=== PATIENT | male | born 1985 ===

== ENCOUNTER 2018-12-22 03:17 | Inpatient (IN) | payer OTHER ==
[2018-12-22] MEDS ORDERED: Sodium Chloride 0.9% 1,000 ML IV STA (03:57)
--- NOTE | 2018-12-22 04:00 | ED PDOC ---
HPI: Abdomen Chief Complaint (Nursing): Male Genitourinary Chief Complaint (Provider): abdominal pain History Per: Patient History/Exam Limitations: no limitations Onset/Duration Of Symptoms: Days (3), Waxing/Waning Current Symptoms Are (Timing): Better Location Of Pain/Discomfort: Epigastric Additional Complaint(s): 33 y/o male presents for evaluation of intermittent abdominal pain x 3 days. Patient reports similar pain on-and-off x years, sometimes with vomiting but none at present. Patient also states he thinks he may have a urine infection and googled his symptoms so took [id number] medications. Denies fever, nausea/vomiting, chest pain, shortness of breath, palpitations, hematuria, changes in bowel movements. PAtient admits to drinking alcohol tonight Past Medical History Reviewed: Historical Data, Nursing Documentation, Vital Signs Vital Signs: Last Vital Signs Temp 98.4 F 12/22/18 03:33 Pulse 114 H 12/22/18 03:33 Resp 18 12/22/18 03:33 BP 125/69 12/22/18 03:33 Pulse Ox 98 12/22/18 03:33 - Medical History PMH: No Chronic Diseases - Surgical History Surgical History: No Surg Hx - Family History Family History: States: Unknown Family Hx - Social History Current smoker - smoking cessation education provided: No Alcohol: Occasional (3x/week) Drugs: Denies - Immunization History Hx Tetanus Toxoid Vaccination: Yes Hx Influenza Vaccination: No Hx Pneumococcal Vaccination: No - Home Medications Home Medications: Ambulatory Orders Medication Instructions Recorded No Known Home Med 11/23/18 - Allergies Allergies/Adverse Reactions: Allergies Allergy/AdvReac Type Severity Reaction Status Date / Time No Known Allergies Allergy Unverified 11/23/18 00:21 Review of Systems ROS Statement: Except As Marked, All Systems Reviewed And Found Negative Gastrointestinal: Positive for: Abdominal Pain Genitourinary Male: Positive for: Dysuria Physical Exam - Reviewed Nursing Documentation Reviewed: Yes Vital Signs Reviewed: Yes - Physical Exam Appears: Positive for: Well, Non-toxic, No Acute Distress Head Exam: Positive for: ATRAUMATIC, NORMAL INSPECTION, NORMOCEPHALIC Skin: Positive for: Normal Color Eye Exam: Positive for: Normal appearance ENT: Positive for: Normal ENT Inspection Cardiovascular/Chest: Positive for: Regular Rate, Rhythm Respiratory: Positive for: Normal Breath Sounds Gastrointestinal/Abdominal: Positive for: Normal Exam Back: Positive for: Normal Inspection Extremity: Positive for: Normal ROM Neurologic/Psych: Positive for: Alert, Oriented (x3) - Laboratory Results Result Diagrams: 12/22/18 04:35 12/22/18 04:35 - ECG ECG: Positive for: Viewed By Me (reviewed by ED attending) ECG Rhythm: Positive for: Sinus Rhythm O2 Sat by Pulse Oximetry: 98 - Progress ED Course And Treament: -cbc -cmp -lipase -alcohol -urinalysis -gc/chlamydia -urine c&s -IV NS bolus Lipase 874, elevated from 204 previous ED visit one month ago with similar complaints Dr. Ayala discussed case with Dr. Ji, medical service on-call, for admission for IV hydration Disposition - Clinical Impression Clinical Impression: Alcohol abuse, Pancreatitis - Patient ED Disposition Is Patient to be Admitted: Yes - Disposition Disposition Time: 05:26 Condition: FAIR
[2018-12-22 04:39] LABS: BASO # 0.1 K/uL (0.0-0.2); BASO % 2.1 % (0.0-2.0); EOS # 0.1 K/uL (0.0-0.7); EOS % 3.5 % (0.0-4.0); HEMOGLOBIN 12.6 g/dL (12.0-18.0); LYMPH # 1.3 K/uL (1.0-4.3); LYMPH % 44.5 % (20.0-40.0); MEAN CELL VOLUME 96.5 fl (80.0-94.0); MEAN CORPUSCULAR HEMOGLOBIN 32.2 pg (27.0-31.0); MEAN CORPUSCULAR HGB CONC 33.4 g/dL (33.0-37.0); MEAN PLATELET VOLUME 7.2 fl (7.2-11.7); MONO # 0.3 K/uL (0.0-0.8); MONO % 8.7 % (0.0-10.0); NEUT # 1.2 K/uL (1.8-7.0); NEUT % 41.2 % (50.0-75.0); NRBC % 0.1 % (0.0-0.0); RBC 3.9 Mil/uL (4.40-5.90); WHITE BLOOD COUNT 2.9 K/uL (4.8-10.8)
[2018-12-22 04:44] LABS: SQUAMOUS EPITHIAL < 1 /hpf (0-5); URINE BACTERIA RARE (<OCC); URINE BILIRUBIN NEGATIVE (NEGATIVE); URINE BLOOD NEGATIVE (NEGATIVE); URINE CLARITY SLIGHTY-CLOUDY (Clear); URINE COLOR YELLOW (YELLOW); URINE GLUCOSE (UA) NEG (NEGATIVE); URINE LEUKOCYTE ESTERASE NEG Leu/uL (Negative); URINE PROTEIN 30 mg/dL (NEGATIVE); URINE UROBILINOGEN 0.2-1.0 mg/dL (0.2-1.0)
[2018-12-22 05:19] LABS: ALB/GLOB RATIO 1.3 (1.0-2.1); ALBUMIN 4.1 g/dL (3.5-5.0); ALT/SGPT 167 U/L (21-72); AST/SGOT 660 U/L (17-59); BLOOD UREA NITROGEN 7 mg/dl (9-20); CALCIUM 8.5 mg/dL (8.4-10.2); GFR NON-AFRICAN AMERICAN > 60; LIPASE 874 U/L (23-300)
[2018-12-22] MEDS ORDERED: Lactated Ringer's 1,000 ML IV STA ×2 (05:22)
[2018-12-22] MEDS ORDERED: Multivitamin (MVI) 10 ML, Folic Acid 1 MG, Thiamine 100 MG in Dextrose 5%/0.45% NS 1,00... IV ONE (05:28)
[2018-12-22] MEDS ORDERED: Morphine 4 MG/ML VIAL IVP ONE (06:33)
[2018-12-22] MEDS ORDERED: Morphine 4 MG/ML VIAL ONE (06:37)
[2018-12-22] MEDS ORDERED: Morphine 4 MG/ML VIAL IVP PRN ×2 (08:10)
[2018-12-22] MEDS ORDERED: Lactated Ringer's 1,000 ML IV SCH (08:15)
--- NOTE | 2018-12-22 08:22 | CP.PCM.HP ---
<Dot Naqvi - Last Filed: 12/22/18 08:15> History of Present Illness - History of Present Illness History of Present Illness: HPI: 33 YO male with PMHx of gastritis and sig ETOH presents to [facility] ED for abdominal pain and lower ext numbness. Pt states that he has had abdominal pain for the past week, but it worsened over the past two days, at the worst last night which prompted pt to come in to the ER. Pt states that pain radiated to the back, not associated with n/v or chills. Normal BMs. Peripheral numbness has been persistent for "years", has been the same but "more bothersome recently. PMHx: gastritis, ETOH abuse SurgHx: denies FHx: denies SHx: 5 pack whiskey 3-4x a week, denies smoking and illicit drug use Allergies: NKDA Present on Admission - Present on Admission Any Indicators Present on Admission: No Review of Systems - Constitutional Constitutional: absent: Chills, Fever - Cardiovascular Cardiovascular: absent: Chest Pain, Dyspnea, Palpitations - Respiratory Respiratory: absent: Cough, Dyspnea - Gastrointestinal Gastrointestinal: Abdominal Pain. absent: Diarrhea, Nausea, Vomiting - Neurological Neurological: Numbness Past Patient History - Past Social History Smoking Status: Never Smoked Alcohol: Occasional (3x/week) Drugs: Denies - PSYCHIATRIC Hx Substance Use: No - SURGICAL HISTORY Hx Surgeries: No - ANESTHESIA Hx Anesthesia: No Meds Allergies/Adverse Reactions: Allergies Allergy/AdvReac Type Severity Reaction Status Date / Time No Known Allergies Allergy Unverified 12/22/18 08:06 Physical Exam - Constitutional Appears: No Acute Distress - Head Exam Head Exam: NORMAL INSPECTION - Eye Exam Eye Exam: Normal appearance - ENT Exam ENT Exam: Mucous Membranes Moist - Respiratory Exam Respiratory Exam: Clear to Auscultation Bilateral, NORMAL BREATHING PATTERN. absent: Wheezes - Cardiovascular Exam Cardiovascular Exam: REGULAR RHYTHM, +S1, +S2 - GI/Abdominal Exam GI & Abdominal Exam: Normal Bowel Sounds, Soft, Tenderness (epigastric area ). absent: Distended, Guarding, Rebound, Rigid - Extremities Exam Extremities exam: Positive for: normal inspection. Negative for: calf tenderness, pedal edema - Neurological Exam Neurological exam: Alert, Oriented x3 - Psychiatric Exam Psychiatric exam: Normal Mood Results - Vital Signs Recent Vital Signs: Last Vital Signs Temp 98.3 F 12/22/18 06:30 Pulse 92 H 12/22/18 06:30 Resp 17 12/22/18 06:30 BP 129/88 12/22/18 06:30 Pulse Ox 98 12/22/18 06:30 - Labs Result Diagrams: 12/22/18 04:35 12/22/18 04:35 Labs: Laboratory Results - last 24 hr 12/22/18 12/22/18 12/22/18 04:35 04:35 04:35 WBC 2.9 L RBC 3.90 L Hgb 12.6 Hct 37.6 MCV 96.5 H MCH 32.2 H MCHC 33.4 RDW 16.0 H Plt Count 155 MPV 7.2 Neut % (Auto) 41.2 L Lymph % (Auto) 44.5 H [place] % (Auto) 8.7 Eos % (Auto) 3.5 Baso % (Auto) 2.1 H Neut # (Auto) 1.2 L Lymph # (Auto) 1.3 [place] # (Auto) 0.3 Eos # (Auto) 0.1 Baso # (Auto) 0.1 Sodium 144 Potassium 3.7 Chloride 108 H Carbon Dioxide 24 Anion Gap 16 BUN 7 L Creatinine 0.6 L Est GFR ( Amer) > 60 Est GFR (Non-Af Amer) > 60 Random Glucose 96 Calcium 8.5 Total Bilirubin 0.7 AST 660 H D ALT 167 H Alkaline Phosphatase 126 Total Protein 7.3 Albumin 4.1 Globulin 3.2 Albumin/Globulin Ratio 1.3 Lipase 874 H Urine Color Yellow Urine Clarity Slighty-cloudy Urine pH 7.0 Ur Specific [place] Ari 1.011 Urine Protein 30 Urine Glucose (UA) Neg Urine Ketones Negative Urine Blood Negative Urine Nitrate Negative Urine Bilirubin Negative Urine Urobilinogen 0.2-1.0 Ur Leukocyte Esterase Neg Urine RBC (Auto) 1 Urine Microscopic WBC 1 Ur Squamous Epith Cells < 1 Urine Bacteria Rare Alcohol, Quantitative 405 H* Assessment & Plan (1) Leukopenia Status: Chronic (2) Alcohol abuse Status: Chronic (3) Pancreatitis Status: Acute - Assessment and Plan (Free Text) Assessment: Assessment/Plan: 33 YO male with PMHx of gastritis and sig ETOH is admitted for alcoholic pancreatitis. Alcoholic pancreatitis -acute, elevated lipase -c/w IVFs LR, NPO -start protonix IV -pain management -GI consulted; follow up recs ETOH abuse -chronic -banana bag, start folate, thiamine -f/w ammonia, B12 and folic acid levels -[facility] 4 today -[facility] protocol -Ativan prn withdrawal -elevated ETOH: 1x lactulose SD -elevated liver enzymes Leukopenia -likely 2/2 to chronic ETOH abuse -c/t monitor Peripheral neuropahthy -likely 2/2 to ETOH abuse -replace thiamine and B12 -follow up b12 and folate levels -consider lyrica DVT: lovenox SC Plan as ordered <Darrell Ji - Last Filed: 12/22/18 09:23> Results - Vital Signs Recent Vital Signs: Last Vital Signs Temp 98.3 F 12/22/18 06:30 Pulse 92 H 12/22/18 06:30 Resp 17 12/22/18 06:30 BP 129/88 12/22/18 06:30 Pulse Ox 98 12/22/18 06:30 - Labs Result Diagrams: 12/22/18 04:35 12/22/18 04:35 Labs: Laboratory Results - last 24 hr 12/22/18 12/22/18 12/22/18 04:35 04:35 04:35 WBC 2.9 L RBC 3.90 L Hgb 12.6 Hct 37.6 MCV 96.5 H MCH 32.2 H MCHC 33.4 RDW 16.0 H Plt Count 155 MPV 7.2 Neut % (Auto) 41.2 L Lymph % (Auto) 44.5 H [place] % (Auto) 8.7 Eos % (Auto) 3.5 Baso % (Auto) 2.1 H Neut # (Auto) 1.2 L Lymph # (Auto) 1.3 [place] # (Auto) 0.3 Eos # (Auto) 0.1 Baso # (Auto) 0.1 Sodium 144 Potassium 3.7 Chloride 108 H Carbon Dioxide 24 Anion Gap 16 BUN 7 L Creatinine 0.6 L Est GFR ( Amer) > 60 Est GFR (Non-Af Amer) > 60 Random Glucose 96 Calcium 8.5 Total Bilirubin 0.7 AST 660 H D ALT 167 H Alkaline Phosphatase 126 Total Protein 7.3 Albumin 4.1 Globulin 3.2 Albumin/Globulin Ratio 1.3 Lipase 874 H Urine Color Yellow Urine Clarity Slighty-cloudy Urine pH 7.0 Ur Specific [place] Ari 1.011 Urine Protein 30 Urine Glucose (UA) Neg Urine Ketones Negative Urine Blood Negative Urine Nitrate Negative Urine Bilirubin Negative Urine Urobilinogen 0.2-1.0 Ur Leukocyte Esterase Neg Urine RBC (Auto) 1 Urine Microscopic WBC 1 Ur Squamous Epith Cells < 1 Urine Bacteria Rare Alcohol, Quantitative 405 H* Assessment & Plan - Assessment and Plan (Free Text) Assessment: Patient was personally seen and examined by me in rounds with residents. Available labs and diagnostic data reviewed. Case, Patient's condition and management plan discussed with residents in rounds. Agree with resident's progress note. Plan: As ordered.
[2018-12-22] MEDS ORDERED: Lactulose 10 gm/15 ml (Rectal Use) PR ONE (11:00)
[2018-12-22] MEDS: Enoxaparin 40 mg Syringe SC SCH (12:12)
--- NOTE | 2018-12-22 13:49 | CARD ---
APPROVED REPORT Date of service: 12/22/2018 EKG Measurement Heart [id number] <Conclusion> Normal sinus rhythm Normal Electrocardiogram
[2018-12-22] MEDS: Thiamine 100 mg/ml Inj IM SCH (15:40)
[2018-12-22] MEDS: Lactated Ringer's 1,000 ML IV SCH ×3 (15:56→21:02)
--- NOTE | 2018-12-23 01:34 | CON ---
DATE: 12/22/2018 REFERRING PHYSICIAN: Darrell Ji MD REASON FOR CONSULTATION: Failure to thrive. HISTORY OF PRESENT ILLNESS: This is a pleasant 33-year-old man who comes in for a heavy alcohol use and abdominal pain and discomfort. The patient is to heavy drink daily, had a little bit of too much drink last night and was here for that. The pain is improving and he is in mild amount of abdominal distress, otherwise, currently lying in bed comfortable. PAST MEDICAL HISTORY: Alcohol. PAST SURGICAL HISTORY: As above. REVIEW OF SYSTEMS: All other systems have been reviewed and negative apart from the HPI. PHYSICAL EXAMINATION: HEENT: Head is normocephalic and atraumatic. Eyes, pupils are equally reactive to light bilaterally. No conjunctival pallor or icterus. NECK: Supple. Normal range of motion. LUNGS: Coarse breath sounds bilaterally. HEART: S1 and S2. Regular rate and rhythm. ABDOMEN: Soft and nontender. Bowel sounds present. No rebound. No guarding. RECTAL: Deferred. EXTREMITIES: Pulses present bilaterally. SKIN: Warm, dry, and intact. NEUROLOGIC: A and O x3. LABORATORY DATA: Labs and radiology have been reviewed. WBC is 3.5, hemoglobin 12.6, hematocrit 37.6, platelet count is normal 155. Creatinine is 0.6. AST is 66, ALT 167, lipase 874. Alcohol level is 405. ASSESSMENT AND PLAN: This is a 33-year-old male with alcohol and pancreatitis. Plan for ultrasound, hepatitis panel, fluids, Librium protocol. Thank you for the consult Anthony Tran MD/ PhD cc: Darrell Ji MD
[2018-12-23] MEDS: Lactated Ringer's 1,000 ML IV SCH ×4 (03:43→10:38)
[2018-12-23 06:55] LABS: MEAN CORPUSCULAR HEMOGLOBIN 33.3 pg (27.0-31.0); MEAN CORPUSCULAR HGB CONC 34.3 g/dL (33.0-37.0); RBC 3.6 Mil/uL (4.40-5.90); RED CELL DISTRIBUTION WIDTH 15.8 % (11.5-14.5); WHITE BLOOD COUNT 3.4 K/uL (4.8-10.8)
[2018-12-23 07:51] LABS: ALB/GLOB RATIO 1.3 (1.0-2.1); ALBUMIN 3.9 g/dL (3.5-5.0); ALT/SGPT 125 U/L (21-72); AST/SGOT 371 U/L (17-59); BLOOD UREA NITROGEN 3 mg/dl (9-20); CALCIUM 9.3 mg/dL (8.4-10.2); GFR NON-AFRICAN AMERICAN > 60; LIPASE 706 U/L (23-300)
[2018-12-23] MEDS: Enoxaparin 40 mg Syringe SC SCH (08:06)
[2018-12-23] MEDS: Thiamine 100 mg/ml Inj IM SCH (08:07)
--- NOTE | 2018-12-23 08:47 | CP.PCM.PN ---
<Dot Naqvi - Last Filed: 12/23/18 08:47> Subjective - Date & Time of Evaluation Date of Evaluation: 12/23/18 Time of Evaluation: 08:45 - Subjective Subjective: No acute overnight events. Pt seen and examined by bedside this AM. States that his pain has significantly improved this AM. Pain with urination has also resolved this morning. Tolerating liquid diet. Denies chest pain, dyspnea, n/v, remains without fever Objective - Vital Signs/Intake and Output Vital Signs (last 24 hours): Temp Pulse Resp BP Pulse Ox 99.1 F 69 20 134/88 98 12/23/18 08:23 12/23/18 08:23 12/23/18 08:23 12/23/18 08:23 12/23/18 08:23 - Medications Medications: Current Medications Acetaminophen (Tylenol 650 Mg Supp) 650 mg ND Q6 PRN PRN Reason: Fever >100.4 F Ciprofloxacin (Cipro) 500 mg PO BID [facility]; Protocol Last Admin: 12/23/18 08:05 Dose: 500 mg Enoxaparin Sodium (Lovenox) 40 mg SC DAILY [facility]; Protocol Last Admin: 12/23/18 08:06 Dose: 40 mg Famotidine (Pepcid) 20 mg IVP Q12 [facility] Last Admin: 12/23/18 08:06 Dose: 20 mg Folic Acid 1 mg/ Sodium (Chloride) 100.2 mls @ 60 mls/hr IVPB DAILY [facility] Last Admin: 12/22/18 12:20 Dose: 60 mls/hr Lactated Ringer's (Lactated Ringer's) 1,000 mls @ 333 mls/hr IV .Q3H1M [facility] Last Admin: 12/23/18 08:06 Dose: 333 mls/hr Lorazepam (Ativan) 2 mg IVP Q6 PRN PRN Reason: Symptoms of alcohol withdrawl Last Admin: 12/22/18 16:15 Dose: 2 mg Morphine Sulfate (Morphine) 2 mg IVP Q6 PRN PRN Reason: Pain, severe (8-10) Morphine Sulfate (Morphine) 1 mg IVP Q6 PRN PRN Reason: Pain, moderate (4-7) Ondansetron HCl (Zofran Inj) 4 mg IVP Q6 [facility] Last Admin: 12/23/18 03:43 Dose: 4 mg Pantoprazole Sodium (Protonix Inj) 40 mg IVP DAILY [facility] Last Admin: 12/23/18 08:07 Dose: 40 mg Thiamine HCl (Vitamin B1 Inj) 100 mg IM DAILY [facility] Last Admin: 12/23/18 08:07 Dose: 100 mg - Labs Labs: 12/23/18 06:00 12/23/18 06:00 - Constitutional Appears: No Acute Distress - Head Exam Head Exam: NORMAL INSPECTION - ENT Exam ENT Exam: Mucous Membranes Moist - Respiratory Exam Respiratory Exam: Clear to Ausculation Bilateral, NORMAL BREATHING PATTERN. absent: Wheezes - Cardiovascular Exam Cardiovascular Exam: REGULAR RHYTHM, +S1, +S2 - GI/Abdominal Exam GI & Abdominal Exam: Soft, Normal Bowel Sounds. absent: Guarding, Rigid, Tenderness - Extremities Exam Extremities Exam: Normal Inspection. absent: Pedal Edema - Back Exam Back Exam: absent: CVA tenderness (L), CVA tenderness (R) - Neurological Exam Neurological Exam: Alert, Awake Assessment and Plan (1) Leukopenia Status: Chronic (2) Alcohol abuse Status: Chronic (3) Pancreatitis Status: Acute - Assessment and Plan (Free Text) Assessment: Assessment/Plan: 33 YO male with PMHx of gastritis and sig ETOH is admitted for alcoholic pancreatitis. Alcoholic pancreatitis -acute, elevated lipase, improving -c/w IVFs LR, liquid diet, will advance as tolerated -c/w protonix IV -pain management -GI consulted; increase IV fluids, blood work and u/s ETOH abuse -chronic -c/w folate, thiamine -f/w ammonia, B12 and folic acid levels -[facility] 2 today -[facility] protocol -Ativan prn withdrawal -elevated liver enzymes--improving Leukopenia -likely 2/2 to chronic ETOH abuse -c/t monitor Peripheral neuropahthy -likely 2/2 to ETOH abuse -replace thiamine and B12 -follow up b12 and folate levels -consider lyrica DVT: lovenox SC Plan as ordered: medications adjusted and changed to PO <Darrell Ji K - Last Filed: 12/23/18 13:24> Objective - Vital Signs/Intake and Output Vital Signs (last 24 hours): Temp Pulse Resp BP Pulse Ox 99.1 F 69 20 134/88 98 12/23/18 08:23 12/23/18 08:23 12/23/18 08:23 12/23/18 08:23 12/23/18 08:23 - Medications Medications: Current Medications Acetaminophen (Tylenol 325mg Tab) 650 mg PO Q6 PRN PRN Reason: Pain, Mild (1-3) Acetaminophen (Tylenol 325mg Tab) 650 mg PO Q6 PRN PRN Reason: Fever >100.4 F Ciprofloxacin (Cipro) 500 mg PO BID [facility]; Protocol Last Admin: 12/23/18 08:05 Dose: 500 mg Enoxaparin Sodium (Lovenox) 40 mg SC DAILY [facility]; Protocol Last Admin: 12/23/18 08:06 Dose: 40 mg Famotidine (Pepcid) 20 mg IVP Q12 [facility] Last Admin: 12/23/18 08:06 Dose: 20 mg Folic Acid (Folic Acid) 1 mg PO DAILY [facility] Last Admin: 12/23/18 10:39 Dose: 1 mg Lorazepam (Ativan) 2 mg IVP Q6 PRN PRN Reason: Symptoms of alcohol withdrawl Last Admin: 12/22/18 16:15 Dose: 2 mg Morphine Sulfate (Morphine) 1 mg IVP Q6 PRN PRN Reason: Pain, severe (8-10) Ondansetron HCl (Zofran Inj) 4 mg IVP Q6 [facility] Last Admin: 12/23/18 10:38 Dose: Not Given Oxycodone/Acetaminophen (Percocet 5/325 Mg Tab) 1 tab PO Q6 PRN PRN Reason: Pain, moderate (4-7) Stop: 12/26/18 08:53 Pantoprazole Sodium (Protonix Ec Tab) 40 mg PO DAILY [facility] Last Admin: 12/23/18 10:36 Dose: Not Given Thiamine HCl (Vitamin B1 Tab) 100 mg PO DAILY [facility] Last Admin: 12/23/18 10:36 Dose: Not Given - Labs Labs: 12/23/18 06:00 12/23/18 06:00 Assessment and Plan - Assessment and Plan (Free Text) Assessment: Patient was personally seen and examined by me in rounds with residents. Available labs and diagnostic data reviewed. Case, Patient's condition and management plan discussed with residents in rounds. Agree with resident's progress note. Plan: As ordered.
[2018-12-23] MEDS ORDERED: Morphine 4 MG/ML VIAL IVP PRN (08:51)
[2018-12-23] MEDS ORDERED: Oxycodone/Acetaminophen 5/325 mg Tab PO PRN (08:52)
[2018-12-23 08:53] LABS: BARBITURATES, UR NEGATIVE (NEGATIVE); BENZODIAZEPINES, UR NEGATIVE (NEGATIVE); OPIATES, UR POSITIVE (NEGATIVE); PHENCYCLIDINE, UR NEGATIVE (NEGATIVE)
[2018-12-23] MEDS: Pantoprazole 40 mg EC Tab PO SCH (10:36)
--- NOTE | 2018-12-23 10:51 | US ---
Date of service: 12/23/2018 HISTORY: pancreatitis COMPARISON: None. TECHNIQUE: Sonographic evaluation of the abdomen. FINDINGS: LIVER: Measures 20.8 cm. Increased echogenicity of the liver parenchyma. No mass. No intrahepatic bile duct dilatation. GALLBLADDER: Unremarkable. No gallstones. COMMON BILE DUCT: Measures 3 mm. No stones. No dilatation. PANCREAS: Not well-visualized due to overlying bowel gas. RIGHT KIDNEY: Measures 11.1 x 5.8 x 4.1cm. Normal echogenicity. No calculus, mass, or hydronephrosis. LEFT KIDNEY: Measures 11.6 x 6.0 x 6.1cm. Normal echogenicity. No calculus, mass, or hydronephrosis. SPLEEN: Normal in size and contour. No mass. AORTA: No aneurysmal dilatation. IVC: Unremarkable. OTHER FINDINGS: None. IMPRESSION: Hepatomegaly with steatosis. Limited evaluation of pancreas due to overlying bowel gas.
--- NOTE | 2018-12-23 11:57 | CP.PCM.PN ---
Subjective - Date & Time of Evaluation Date of Evaluation: 12/23/18 Time of Evaluation: 11:56 - Subjective Subjective: no overnight events Objective - Vital Signs/Intake and Output Vital Signs (last 24 hours): Temp Pulse Resp BP Pulse Ox 99.1 F 69 20 134/88 98 12/23/18 08:23 12/23/18 08:23 12/23/18 08:23 12/23/18 08:23 12/23/18 08:23 - Medications Medications: Current Medications Acetaminophen (Tylenol 325mg Tab) 650 mg PO Q6 PRN PRN Reason: Pain, Mild (1-3) Acetaminophen (Tylenol 325mg Tab) 650 mg PO Q6 PRN PRN Reason: Fever >100.4 F Ciprofloxacin (Cipro) 500 mg PO BID [facility]; Protocol Last Admin: 12/23/18 08:05 Dose: 500 mg Enoxaparin Sodium (Lovenox) 40 mg SC DAILY [facility]; Protocol Last Admin: 12/23/18 08:06 Dose: 40 mg Famotidine (Pepcid) 20 mg IVP Q12 [facility] Last Admin: 12/23/18 08:06 Dose: 20 mg Folic Acid (Folic Acid) 1 mg PO DAILY [facility] Last Admin: 12/23/18 10:39 Dose: 1 mg Lorazepam (Ativan) 2 mg IVP Q6 PRN PRN Reason: Symptoms of alcohol withdrawl Last Admin: 12/22/18 16:15 Dose: 2 mg Morphine Sulfate (Morphine) 1 mg IVP Q6 PRN PRN Reason: Pain, severe (8-10) Ondansetron HCl (Zofran Inj) 4 mg IVP Q6 [facility] Last Admin: 12/23/18 10:38 Dose: Not Given Oxycodone/Acetaminophen (Percocet 5/325 Mg Tab) 1 tab PO Q6 PRN PRN Reason: Pain, moderate (4-7) Stop: 12/26/18 08:53 Pantoprazole Sodium (Protonix Ec Tab) 40 mg PO DAILY [facility] Last Admin: 12/23/18 10:36 Dose: Not Given Thiamine HCl (Vitamin B1 Tab) 100 mg PO DAILY [facility] Last Admin: 12/23/18 10:36 Dose: Not Given - Labs Labs: 12/23/18 06:00 12/23/18 06:00 - Head Exam Head Exam: NORMOCEPHALIC - Neck Exam Neck Exam: Normal Inspection - Respiratory Exam Respiratory Exam: Clear to Ausculation Bilateral, NORMAL BREATHING PATTERN - Cardiovascular Exam Cardiovascular Exam: REGULAR RHYTHM - GI/Abdominal Exam GI & Abdominal Exam: Soft, Normal Bowel Sounds Assessment and Plan - Assessment and Plan (Free Text) Assessment: 33 yo male with EtOH pancreatitis sonogram noted ADAT
[2018-12-23 21:22] LABS: FOLATE 15.8 ng/mL
--- NOTE | 2018-12-24 08:48 | PN ---
DATE: 12/24/2018 SUBJECTIVE: The patient seen and examined. Interim events noted. Consults noted and appreciated. Gastroenterology followup and intervention noted and appreciated. Case was discussed with the cover cutter. The patient feels much better. No abdominal pain. No urinary symptom. No chest pain. No shortness of breath. Started eating and tolerated food without any known complication. PHYSICAL EXAMINATION: GENERAL: The patient is in no acute distress. VITAL SIGNS: Stable. HEART: S1 and S2, normal and regular. LUNGS: Good bilateral air exchange. ABDOMEN: Soft, nontender. No organomegaly. No fluid. Bowel sounds are plus and normal. No sign of acute abdomen. No guarding. No rigidity. No rebound. EXTREMITIES: No edema. No calf swelling. No tenderness. No acute ischemia. DIRECTOR SUPPLY: Exam is essentially unchanged. DIAGNOSTIC DATA: Available diagnostic data reviewed. ASSESSMENT AND PLAN: Overall the patient's general medical condition is stable and improving. Plan as ordered. Darrell Ji MD
[2018-12-24] MEDS: Pantoprazole 40 mg EC Tab PO SCH (09:20)
[2018-12-24] MEDS: Enoxaparin 40 mg Syringe SC SCH (09:20)
[2018-12-24 12:24] LABS: HEPATITIS B SURFACE AG Negative (NEGATIVE)
[2018-12-24 12:29] LABS: HEPATITIS A IGM NEGATIVE (NEGATIVE); HEPATITIS B CORE AB NEGATIVE (NEGATIVE)
[2018-12-24 12:41] LABS: HEPATITIS C ANTIBODY NEGATIVE (NEGATIVE)
[2018-12-25 08:01] LABS: HEMOGLOBIN 12.3 g/dL (12.0-18.0); MEAN CORPUSCULAR HEMOGLOBIN 33.4 pg (27.0-31.0); MEAN CORPUSCULAR HGB CONC 34.1 g/dL (33.0-37.0); RBC 3.7 Mil/uL (4.40-5.90); RED CELL DISTRIBUTION WIDTH 15.7 % (11.5-14.5); WHITE BLOOD COUNT 3.8 K/uL (4.8-10.8)
[2018-12-25 08:46] LABS: ALB/GLOB RATIO 1.3 (1.0-2.1); ALBUMIN 4.2 g/dL (3.5-5.0); ALT/SGPT 143 U/L (21-72); AMYLASE 99 U/L (30-110); AST/SGOT 292 U/L (17-59); BLOOD UREA NITROGEN 10 mg/dl (9-20); CALCIUM 9.4 mg/dL (8.4-10.2); GFR NON-AFRICAN AMERICAN > 60; LIPASE 766 U/L (23-300)
[2018-12-25] MEDS: Enoxaparin 40 mg Syringe SC SCH (09:26)
[2018-12-25] MEDS: Pantoprazole 40 mg EC Tab PO SCH (09:31)
--- NOTE | 2018-12-25 10:22 | PN ---
DATE: 12/25/2018 SUBJECTIVE: The patient seen and examined. Interim events noted. The patient remains in regular medical floor. Feels much better. No chest pain. No shortness of breath. No abdominal pain. No vomiting. No urinary symptoms or any neuropathic symptoms. complaints. PHYSICAL EXAMINATION: GENERAL: The patient is in no acute distress. VITAL SIGNS: Stable. HEART: S1, S2, normal and regular. LUNGS: Good bilateral air exchange. ABDOMEN: Soft, nontender. EXTREMITIES: No edema. No calf swelling. No tenderness. No acute ischemia. CENTRAL NERVOUS SYSTEM: Exam is essentially unchanged. DIAGNOSTIC DATA: Available diagnostic data reviewed. ASSESSMENT AND PLAN: Overall the patient's general medical condition is stable. Plan as ordered. Darrell Ji MD
--- NOTE | 2018-12-25 10:24 | PN ---
DATE: 12/25/2018 SUBJECTIVE: The patient seen and examined. Interim events noted. The patient remains in regular medical floor. Feels much better. No abdominal pain. No urinary symptoms. The neuropathic symptom also resolved. No chest pain. No shortness of breath. PHYSICAL EXAMINATION: GENERAL: The patient is in no acute distress. VITAL SIGNS: Stable. HEART: S1, S2, normal and regular. LUNGS: Good bilateral air exchange. ABDOMEN: Soft, nontender. EXTREMITIES: No edema. No calf swelling. No tenderness. No acute ischemia. CENTRAL NERVOUS SYSTEM: Exam is essentially unchanged. DIAGNOSTIC DATA: Available diagnostic data reviewed. Today's labs are pending. ASSESSMENT AND PLAN: Overall the patient's general medical condition is stable. Plan as ordered. Darrell Ji MD
[2018-12-26 08:30] VITALS: BP 115/70; PULSE 92; RESP 20; TEMP 98.4; O2SAT 98
[2018-12-26] MEDS ORDERED: Potassium Chloride 20 mEq ER Tab PO STA (09:15)
[2018-12-26] MEDS: Pantoprazole 40 mg EC Tab PO SCH (09:38)
[2018-12-26 11:07] LABS: ALB/GLOB RATIO 1.3 (1.0-2.1); ALBUMIN 4.2 g/dL (3.5-5.0); ALT/SGPT 145 U/L (21-72); AMYLASE 107 U/L (30-110); AST/SGOT 214 U/L (17-59); BLOOD UREA NITROGEN 11 mg/dl (9-20); CALCIUM 9.3 mg/dL (8.4-10.2); GFR NON-AFRICAN AMERICAN > 60; LIPASE 1126 U/L (23-300)
[2018-12-26] MEDS ORDERED: Lactated Ringer's 1,000 ML IV SCH (12:00)
--- NOTE | 2018-12-26 14:07 | CP.PCM.PCO ---
Assessment & Plan - Assessment and Plan (Free Text) Assessment: patient doing well, tolerating diet, denies sob, fever, chills, n/v/d repeat labs note, s/p kcl suplement; notified pt. cleared for d/c today by and instructed to f.u with in 1 week
--- NOTE | 2018-12-27 07:13 | PN ---
DATE: 12/26/2018 SUBJECTIVE: The patient seen and examined. Interim events noted. The patient remains in regular medical floor. The patient feels okay. Denies any abdominal pain, nausea, vomiting, diarrhea, constipation. The patient tolerated food very well, also moving his bowels and passing urine without any difficulty. PHYSICAL EXAMINATION: GENERAL: The patient is in no acute distress. VITAL SIGNS: Stable. HEART: S1, S2 normal and regular. LUNGS: Good bilateral air exchange. ABDOMEN: Soft, nontender. No organomegaly. No fluid. Bowel sounds are present and normal. No sign of acute abdomen. No guarding noted. ABDOMEN: Soft, nontender. No organomegaly. No fluid. Bowel sounds are plus and normal. No sign of acute abdomen. No guarding. No rigidity. No rebound. EXTREMITIES: No edema. No calf swelling. No tenderness. No acute ischemia. CENTRAL NERVOUS SYSTEM: Exam is essentially unchanged. DIAGNOSTIC DATA: Available diagnostic data reviewed. Lipase level still remains elevated at 766, although clinically, the patient has no symptoms of acute pancreatitis ongoing. PLAN: As ordered. Case and plan discussed with the patient. Darrell Ji MD
== END 2018-12-26 16:05 | disposition home or self-care (01) | DRG 204 ==
LOC: H.ER 03:17 → H.ERHOLD 05:21 → H.MEDSURG3 09:32 → H.MEDSURG1 12-23 16:52
PROVIDERS: ADMIT Internal Medicine; ATTEND Internal Medicine
DX: K85.20 Alcohol induced acute pancreatitis without necrosis or infection (principal); G62.1 Alcoholic polyneuropathy; D72.819 Decreased white blood cell count, unspecified; K29.70 Gastritis, unspecified, without bleeding; R74.8 Abnormal levels of other serum enzymes; R62.7 Adult failure to thrive; F10.10 Alcohol abuse, uncomplicated; R30.9 Painful micturition, unspecified; Y90.8 Blood alcohol level of 240 mg/100 ml or more